=== PATIENT | female | born 1945 | race Caucasian/White ===

== ENCOUNTER 2025-04-24 07:50 | Outpatient (CLI) | payer OTHER, SELFPAY | END 2025-04-24 07:51 | disposition home or self-care (01) | PROVIDERS: Visit Provider Nurse Practitioner Family | DX: L89.510 Pressure ulcer of right ankle, unstageable (principal); Z96.661 Presence of right artificial ankle joint | CPT/HCPCS: 11042; G0463 ==

== ENCOUNTER 2025-05-01 08:06 | Outpatient (CLI) | payer OTHER, SELFPAY | END 2025-05-01 08:07 | disposition home or self-care (01) | LOC: WOUND 08:07 | PROVIDERS: Visit Provider Nurse Practitioner Family | DX: L89.510 Pressure ulcer of right ankle, unstageable (principal); Z96.661 Presence of right artificial ankle joint | CPT/HCPCS: 97597 ==

== ENCOUNTER 2025-05-08 08:31 | Outpatient (CLI) | payer OTHER, SELFPAY | END 2025-05-08 08:32 | disposition home or self-care (01) | LOC: WOUND 08:31 | PROVIDERS: Visit Provider Nurse Practitioner Family | DX: L89.510 Pressure ulcer of right ankle, unstageable (principal); Z96.661 Presence of right artificial ankle joint | CPT/HCPCS: 11042 ==

== ENCOUNTER 2025-05-15 08:07 | Outpatient (CLI) | payer OTHER, SELFPAY | END 2025-05-15 08:08 | disposition home or self-care (01) | LOC: WOUND 08:07 | PROVIDERS: Visit Provider Nurse Practitioner Family | DX: L89.514 Pressure ulcer of right ankle, stage 4 (principal); Z96.661 Presence of right artificial ankle joint | CPT/HCPCS: 11042 ==

== ENCOUNTER 2025-05-21 13:14 | Outpatient (CLI) | payer OTHER, SELFPAY | END 2025-05-21 13:15 | disposition home or self-care (01) | LOC: WOUND 13:14 | PROVIDERS: Visit Provider Nurse Practitioner Family | DX: L89.514 Pressure ulcer of right ankle, stage 4 (principal); Z96.661 Presence of right artificial ankle joint | CPT/HCPCS: 11042 ==

== ENCOUNTER 2025-05-29 08:14 | Outpatient (CLI) | payer OTHER, SELFPAY | END 2025-05-29 08:15 | disposition home or self-care (01) | PROVIDERS: Visit Provider Nurse Practitioner Family | DX: L89.514 Pressure ulcer of right ankle, stage 4 (principal); Z96.661 Presence of right artificial ankle joint | CPT/HCPCS: 11042 ==

== ENCOUNTER 2025-06-05 08:07 | Outpatient (CLI) | payer OTHER, SELFPAY | END 2025-06-05 08:08 | disposition home or self-care (01) | LOC: WOUND 08:07 | PROVIDERS: Visit Provider Nurse Practitioner Family | DX: L89.514 Pressure ulcer of right ankle, stage 4 (principal); Z96.661 Presence of right artificial ankle joint | CPT/HCPCS: 11042 ==

== ENCOUNTER 2025-06-12 08:06 | Outpatient (CLI) | payer OTHER, SELFPAY | END 2025-06-12 08:07 | disposition home or self-care (01) | LOC: WOUND 08:06 | PROVIDERS: Visit Provider Nurse Practitioner Family | DX: L89.514 Pressure ulcer of right ankle, stage 4 (principal); Z96.661 Presence of right artificial ankle joint | CPT/HCPCS: 11042 ==

== ENCOUNTER 2025-06-19 08:08 | Outpatient (CLI) | payer OTHER, SELFPAY | END 2025-06-19 08:09 | disposition home or self-care (01) | LOC: WOUND 08:08 | PROVIDERS: Visit Provider Nurse Practitioner Family | DX: L89.514 Pressure ulcer of right ankle, stage 4 (principal); Z96.661 Presence of right artificial ankle joint | CPT/HCPCS: 11042 ==

== ENCOUNTER 2025-06-26 08:30 | Outpatient (CLI) | payer OTHER, SELFPAY | END 2025-06-26 08:31 | disposition home or self-care (01) | LOC: WOUND 07-17 15:51 | PROVIDERS: Visit Provider Family Medicine | DX: L89.514 Pressure ulcer of right ankle, stage 4 (principal); Z96.661 Presence of right artificial ankle joint | CPT/HCPCS: 97597 ==

== ENCOUNTER 2025-07-03 08:09 | Outpatient (CLI) | payer OTHER, SELFPAY | END 2025-07-03 08:10 | disposition home or self-care (01) | LOC: WOUND 08:09 | PROVIDERS: Visit Provider Nurse Practitioner Family | DX: L89.514 Pressure ulcer of right ankle, stage 4 (principal); Z96.661 Presence of right artificial ankle joint | CPT/HCPCS: 11042 ==

== ENCOUNTER 2025-07-10 08:11 | Outpatient (CLI) | payer OTHER, SELFPAY | END 2025-07-10 08:12 | disposition home or self-care (01) | LOC: WOUND 08:11 | PROVIDERS: Visit Provider Nurse Practitioner Family | DX: L89.514 Pressure ulcer of right ankle, stage 4 (principal); Z96.661 Presence of right artificial ankle joint | CPT/HCPCS: 11042 ==

== ENCOUNTER 2025-07-17 08:03 | Outpatient (CLI) | payer OTHER, SELFPAY | END 2025-07-17 08:04 | disposition home or self-care (01) | LOC: WOUND 08:03 | PROVIDERS: Visit Provider Nurse Practitioner Family | DX: L89.514 Pressure ulcer of right ankle, stage 4 (principal); Z96.661 Presence of right artificial ankle joint | CPT/HCPCS: 11042 ==

== ENCOUNTER 2025-07-23 08:04 | Outpatient (CLI) | payer OTHER, SELFPAY | END 2025-07-23 08:05 | disposition home or self-care (01) | LOC: WOUND 08:04 | PROVIDERS: Visit Provider Nurse Practitioner Family | DX: L89.514 Pressure ulcer of right ankle, stage 4 (principal); Z96.661 Presence of right artificial ankle joint | CPT/HCPCS: 11042 ==

== ENCOUNTER 2025-07-31 08:03 | Outpatient (CLI) | payer OTHER, SELFPAY | END 2025-07-31 08:04 | disposition home or self-care (01) | LOC: WOUND 08:03 | DX: L89.514 Pressure ulcer of right ankle, stage 4 (principal); Z96.661 Presence of right artificial ankle joint | CPT/HCPCS: 97597 ==

== ENCOUNTER 2025-08-07 08:05 | Outpatient (CLI) | payer OTHER, SELFPAY | END 2025-08-07 08:06 | disposition home or self-care (01) | LOC: WOUND 08:05 | PROVIDERS: Visit Provider Nurse Practitioner Family | DX: Z09 Encounter for follow-up examination after completed treatment for conditions other than malignant neoplasm (principal); Z87.2 Personal history of diseases of the skin and subcutaneous tissue; Z96.661 Presence of right artificial ankle joint | CPT/HCPCS: G0463 ==